=== PATIENT | female | born 1985 | race Caucasian/White ===

== ENCOUNTER 2022-12-24 09:40 | Outpatient (CLI) | payer BC, SELFPAY | END 2022-12-24 09:41 | disposition home or self-care (01) | LOC: NFLDREF 17:06 | PROVIDERS: PCP Family Medicine; Referring Provider Family Medicine; Visit Provider Family Medicine | DX: R73.01 Impaired fasting glucose (principal); E78.5 Hyperlipidemia, unspecified; R53.83 Other fatigue; R74.8 Abnormal levels of other serum enzymes | CPT/HCPCS: 80053; 80061 ==

== ENCOUNTER 2024-01-30 08:30 | Outpatient (CLI) | payer BC, SELFPAY | END 2024-01-30 08:31 | disposition home or self-care (01) | LOC: NFLDREF 01-31 09:38 | PROVIDERS: PCP Family Medicine; Visit Provider Family Medicine | DX: E78.5 Hyperlipidemia, unspecified (principal); R73.03 Prediabetes; R53.83 Other fatigue; Z13.29 Encounter for screening for other suspected endocrine disorder | CPT/HCPCS: 80053; 80061; 84443 ==

== ENCOUNTER 2025-03-04 08:05 | Outpatient (CLI) | payer BC, SELFPAY | END 2025-03-04 08:06 | disposition home or self-care (01) | LOC: NFLDREF 03-05 00:14 | PROVIDERS: PCP Family Medicine; Referring Provider Family Medicine; Visit Provider Family Medicine | DX: R74.8 Abnormal levels of other serum enzymes (principal); E78.5 Hyperlipidemia, unspecified | CPT/HCPCS: 80053; 80061 ==